=== PATIENT | female | born 1940 | race Caucasian/White ===

== ENCOUNTER 2016-03-29 15:59 | Emergency (ER) | payer MEDICARE, BC ==
[2016-03-29 16:00] VITALS: BMI 19.5
[2016-03-29 16:10] VITALS: TEMP 97.4
[2016-03-29] MEDS ORDERED: DIATRIZOATE MEGLMINE/SODIUM 30 ML BOTTLE PO ONE (16:32)
[2016-03-29 16:45] LABS: AMORPHOUS OCC; LEUKOCYTES/URINE NEG (NEGATIVE); NITRITE/URINE NEG (NEGATIVE); RBC/URINE 0-2 (0-5); URINE OCCULT BLOOD NEG (NEG/TRACE)
[2016-03-29 16:56] LABS: BLOOD UREA NITROGEN 18 MG/DL (7-17); CALC CORRECTED 10.3 MG/DL (8.4-10.2); CALCIUM 9.8 MG/DL (8.4-10.2); CALCULATED OSMOLALITY 274 MOs/Kg (270-290); CHLORIDE 104 mEq/L (98-107); GLUCOSE 122 MG/DL (70-99); SODIUM LEVEL 141 mEq/L (137-146); TOTAL PROTEIN 6.9 G/DL (6.3-8.2)
[2016-03-29 16:58] LABS: AUTOMATED BASOPHIL 0.5 % (0-2); AUTOMATED EOSINOPHIL 1.2 % (0-5); AUTOMATED LYMPH 11.7 % (17-44); AUTOMATED MONOCYTE 7.8 % (3-10); AUTOMATED NEUTROPHIL 78.8 % (45-76); MPV 9.6 fL (7.4-10.4)
[2016-03-29] MEDS ORDERED: Pharmacy Review for Metformin - IV Contrast Given SCH ×3 (17:00)
--- NOTE | 2016-03-29 17:03 | EDPRACDOC ---
- General Information Information Source: Patient, [employer]ing [employer] Operator Mode Of Arrival: Ambulance - History of Present Illness Onset: noon Pain Location: Reports: RLQ Pain Context: Reports: Spontaneous Pain Severity: Severe Pain Quality: Reports: Stabbing Pain Radiation: Reports: No Radiation Oral Intake: Normal Urinary Output: Normal <MichiAnaid rodrigues Pratik - Last Filed: 03/29/16 17:01> <Vandana Bishop - Last Filed: 03/29/16 20:09> <Meagan Patel - Last Filed: 03/29/16 20:35> - General Information Chief Complaint: Abdominal Pain Stated Complaint: RT SIDE PAIN Time Seen by Provider: 03/29/16 16:23 Home Medications: Home Medications Lisinopril [Prinivil] 10 mg PO DAILY 03/03/14 Amiodarone [Cordarone, Pacerone] 200 mg PO BID #60 tablet 08/05/14 Calcium Carbonate/Vitamin D3 [Calcium 600-Vit D3 400 Tablet] 1 each PO BID 08/14 PEG-Electrolytes (Miralax) [Miralax] 17 gm PO Q48H PRN 08/14/14 Lorazepam [Ativan] 1 mg PO Q4H PRN #30 tablet 08/17/14 Folic Acid 1 mg PO BID 12/07/14 Hydrochlorothiazide 25 mg PO Q48H 12/07/14 Ondansetron HCl [Zofran] 4 mg PO Q6H PRN 12/07/14 Oxycodone HCl [Roxicodone] 5 mg PO Q4H PRN 12/08/14 Vitamins,Minerals,Iron [Hemocyte Plus] 1 tab PO DAILY 01/01/15 Apixaban [Eliquis] 2.5 mg PO BID 10/02/15 Potassium Chloride [Klor-Con M10] 10 meq PO DAILY 10/02/15 Allergies/Adverse Reactions: Allergies Allergy/AdvReac Type Severity Reaction Status Date / Time No Known Drug Allergies Allergy Unknown Verified 03/29/16 16:07 - History of Present Illness HPI: PT PRESENTS TODAY FROM [facility] FOR RLQ ABD PAIN THAT BEGAN A FEW HOURS AGO. PT POOR HISTORIAN, BUT STATES THAT THE PAIN CAME ON SUDDENLY AND FELT LIKE SOMEONE STABBING HER. PT STATES THAT WHEN EMS PICKED HER UP, THE PAIN RESIDED. PT DENIES SYMPTOMS AT THIS TIME. DENIES ARNDT, FEVER, CP, SHOB, N/ V/D, DYSURIA. (Anaid Borden) ED Past Medical History - History Reviewed Yes Nurses notes reviewed and agree except as marked - Patient Medical History Neurological History: Reports: Cerebrovascular Accident (x2, bilat weakness 2013 AND 2014), Dementia (ADVANCED). Denies: Migraine Cardiac History: Reports: Atrial Fibrillation, Hypertension, Hypercholesterolemia Respiratory History: Denies: Cough, Chronic Bronchitis, Pulmonary Embolism GI/ History: Denies: Renal Failure, Kidney (Renal Surgery), Kidney Stones, Gastroesophageal Reflux, Ulcer, IBD, Diverticulosis, Pancreatitis Musculoskeletal History: Reports: Arthritis Psychological History: Reports: Anxiety. Denies: Depression, Substance Use Disorder Systemic History: Reports: Cancer (skin cancer, removed.), Anemia (YEARS AGO) Surgical History: Reports: Tonsillectomy/Adnoidectomy ( CHILD), Other (D&C, cataract extractions) - Family Medical History Reports: Cancer (Mother had multiple skin cancers, Dad- colon cancer, Brother liver cancer). Denies: Hypertension, Diabetes, Stroke, Cardiac Disorders - Social Medical History Smoking Status: Never smoker Social History: Denies: Benzodiazipine Use, Substance Use Disorder <Anaid Borden - Last Filed: 03/29/16 17:01> EDM Review of Systems - Review of Systems ROS Negative Except as Marked: Yes All systems reviewed and were negative except as marked ROS Unobtainable: Yes Hx Limited due to age/level of understanding of patient Constitutional: No Symptoms Reported Respiratory: No Symptoms Reported Cardiovascular: No Symptoms Reported Gastrointestinal: Pain Genitourinary: No Symptoms Reported Neurological: No Symptoms Reported Musculoskeletal: No Symptoms Reported Integumentary: No Symptoms Reported <Anaid Borden - Last Filed: 03/29/16 17:01> - Physical Exam Constitutional: Alert (Awake), No apparent distress Oriented to: Time, Person, Place - HEENT Head: Normal Eye Exam: Normal - Respiratory/Cardiovascular Respiratory: Normal - CTA Cardiovascular: Normal - GI Auscultation: Normal Palpation: Normal Tenderness: Non tender - Musculoskeletal Back: Normal Extremities: Normal - Integumentary Skin: Normal Lymphatics: Normal - Neurologic Cerebellar: Unable to Test Mood Description: Normal Thought: Coherent Perception: Normal <Anaid Borden - Last Filed: 03/29/16 17:01> - Results 03/29/16 16:35 03/29/16 16:35 <Anaid Borden - Last Filed: 03/29/16 17:01> - Results 03/29/16 16:35 03/29/16 16:35 - Diagnostic Imaging Abdomen Image interpreted by: Radiologist <Vandana Bishop - Last Filed: 03/29/16 20:09> - Re-evaluation Re-evaluation 3 Re-evaluation Time: 20:34 - Results 03/29/16 16:35 03/29/16 16:35 <Meagan Patel - Last Filed: 03/29/16 20:35> - Re-evaluation Re-evaluation 3 I RECOMMENDED AN ENEMA FOR PATIENT TO RELIEVE FECAL BALL, PATIENT PRESENT WITH ABDOMINAL PAIN WHICH IS CURRENTLY RESOLVED. PATIENT IN NO WAY ONCE THE ENEMA SAYS SHE DOES NOT NEEDED SHE HAS WAS RETURNED BACK TO HER PLACE OF LIVING AT [facility]. PATIENT IS ALERT SHE IS ORIENTED SHE KNOWS WHERE SHE IS 4 MONTHS OUT IS TO WHETHER [facility] SHE APPEARS CAPABLE MAKING RATIONAL DECISION AN INFORMED DECISION THEREFORE WE WILL NOT DO AN ENEMA AGAINST HER WISHES. (Meagan Patel) - Results WBC 4.4 xk/uL (3.8-10.8) 03/29/16 16:35 RBC 4.23 xM/uL (4.20-5.40) 03/29/16 16:35 Hgb 13.2 g/dL (12.0-16.0) 03/29/16 16:35 Hct 41.4 % (36-47) 03/29/16 16:35 MCV 98 fL (81-99) 03/29/16 16:35 MCH 31.3 pg (27-32) 03/29/16 16:35 MCHC 32.0 g/dl (33-36) L 03/29/16 16:35 RDW 15.5 % (11.5-14.5) H 03/29/16 16:35 Plt Count 156 xk/uL (130-400) 03/29/16 16:35 MPV 9.6 fL (7.4-10.4) 03/29/16 16:35 Neut % (Auto) 78.8 % (45-76) H 03/29/16 16:35 Lymph % (Auto) 11.7 % (17-44) L 03/29/16 16:35 [place] % (Auto) 7.8 % (3-10) 03/29/16 16:35 Eos % (Auto) 1.2 % (0-5) 03/29/16 16:35 Baso % (Auto) 0.5 % (0-2) 03/29/16 16:35 Absolute Neuts (auto) 3.43 xk/uL (1.7-8.2) 03/29/16 16:35 Absolute Lymphs (auto) 0.48 xk/uL (0.65-4.75) L 03/29/16 16:35 Sodium 141 mEq/L (137-146) 03/29/16 16:35 Potassium 4.4 mEq/L (3.5-5.1) 03/29/16 16:35 Chloride 104 mEq/L (98-107) 03/29/16 16:35 Carbon Dioxide 30 mMOL/L (22-33) 03/29/16 16:35 Anion Gap 11 mEq/L (8-16) 03/29/16 16:35 BUN 18 MG/DL (7-17) H 03/29/16 16:35 Creatinine 0.70 MG/DL (0.52-1.04) 03/29/16 16:35 Estimated GFR (MDRD) > 60 mL/min (>=60) 03/29/16 16:35 Glucose 122 MG/DL (70-99) H 03/29/16 16:35 Calculated Osmolality 274 MOs/Kg (270-290) 03/29/16 16:35 Calcium 9.8 MG/DL (8.4-10.2) 03/29/16 16:35 Corrected Calcium 10.3 MG/DL (8.4-10.2) H 03/29/16 16:35 Total Bilirubin 0.6 MG/DL (0.2-1.3) 03/29/16 16:35 AST 31 IU/L (14-36) 03/29/16 16:35 ALT 36 IU/L (9-52) 03/29/16 16:35 Alkaline Phosphatase 269 IU/L (55-165) H 03/29/16 16:35 Total Protein 6.9 G/DL (6.3-8.2) 03/29/16 16:35 Albumin 3.5 G/DL (3.5-5.0) 03/29/16 16:35 Urine Color Yellow 03/29/16 16:25 Urine Clarity Sl cldy 03/29/16 16:25 Urine pH 7.0 (5.0-8.0) 03/29/16 16:25 Ur Specific [place] 1.005 (1.003-1.035) 03/29/16 16:25 Urine Protein Neg (NEG/TRACE) 03/29/16 16:25 Urine Glucose (UA) Neg (NEGATIVE) 03/29/16 16:25 Urine Ketones Neg (NEGATIVE) 03/29/16 16:25 Urine Occult Blood Neg (NEG/TRACE) 03/29/16 16:25 Urine Nitrite Neg (NEGATIVE) 03/29/16 16:25 Urine Bilirubin Neg (NEGATIVE) 03/29/16 16:25 Urine Urobilinogen <2.0 MG/DL (0-1) 03/29/16 16:25 Ur Leukocyte Esterase Neg (NEGATIVE) 03/29/16 16:25 Urine RBC 0-2 (0-5) 03/29/16 16:25 Urine WBC 2-5 (0-5) 03/29/16 16:25 Amorphous Sediment Occ 03/29/16 16:25 Hyaline Casts 5-10 (0-2) H 03/29/16 16:25 Urine Mucus Occ (NEG/OCC) 03/29/16 16:25 Lab Results 03/29/16 03/29/16 03/29/16 16:35 16:35 16:25 WBC 4.4 RBC 4.23 Hgb 13.2 Hct 41.4 MCV 98 MCH 31.3 MCHC 32.0 L RDW 15.5 H Plt Count 156 MPV 9.6 Neut % (Auto) 78.8 H Lymph % (Auto) 11.7 L [place] % (Auto) 7.8 Eos % (Auto) 1.2 Baso % (Auto) 0.5 Absolute Neuts (auto) 3.43 Absolute Lymphs (auto) 0.48 L Sodium 141 Potassium 4.4 Chloride 104 Carbon Dioxide 30 Anion Gap 11 BUN 18 H Creatinine 0.70 Estimated GFR (MDRD) > 60 Glucose 122 H Calculated Osmolality 274 Calcium 9.8 Corrected Calcium 10.3 H Total Bilirubin 0.6 AST 31 ALT 36 Alkaline Phosphatase 269 H Total Protein 6.9 Albumin 3.5 Urine Color Yellow Urine Clarity Sl cldy Urine pH 7.0 Ur Specific [place] 1.005 Urine Protein Neg Urine Glucose (UA) Neg Urine Ketones Neg Urine Occult Blood Neg Urine Nitrite Neg Urine Bilirubin Neg Urine Urobilinogen <2.0 Ur Leukocyte Esterase Neg Urine RBC 0-2 Urine WBC 2-5 Amorphous Sediment Occ Hyaline Casts 5-10 H Urine Mucus Occ (Anaid Borden) (Vandana [employer]) (Meagan Patel) - Diagnostic Imaging Abdomen 03/29/16 20:09 IMPRESSION: Mild interstitial pulmonary edema, small right pleural effusion and bibasilar hypoventilatory changes of the lungs. Focal consolidation versus pulmonary mass in the left lung base measuring approximately 3 cm. Periportal hepatic edema, nonspecific finding with likely inflammatory etiology. Nonobstructive nephrolithiasis bilaterally. Bilateral renal masses, the larger of which are consistent with cysts. Moderate amount of stool throughout the colon with evidence of rectal impaction. Comminuted fracture of unknown acuity of the right femur greater trochanter, with somewhat sclerotic appearance of the adjacent bony cortex. Pathologic fracture cannot be excluded. T10, T12, L2 and L4 compression fractures, with mottled appearance of the bony matrix. Pathologic fractures cannot be excluded. Does the patient have a known malignancy capable of producing sclerotic lesions? (Vandana Bishop) <Anaid Borden - Last Filed: 03/29/16 17:01> - Departure Education/Counseling Given To: Patient Education/Counseling Given Regarding: Diagnosis, Treatment <Vandana Bishop - Last Filed: 03/29/16 20:09> - Departure Yes I personally saw and evaluated the patient. Disposition: Assisted Living Facility <Meagan Patel - Last Filed: 03/29/16 20:35> - Departure Condition: Stable Final Diagnosis: Compression fracture of body of thoracic vertebra, Lung mass Constipation Qualifiers: Constipation type: unspecified constipation type Qualified Code(s): K59.00 - Constipation, unspecified Compression fracture of lumbar vertebra Qualifiers: Encounter type: initial encounter Fracture type: closed Qualified Code(s): S32.000A - Wedge compression fracture of unspecified lumbar vertebra, initial encounter for closed fracture Fracture of greater trochanter of right femur Qualifiers: Encounter type: initial encounter Fracture type: closed Qualified Code(s): S72.111A - Displaced fracture of greater trochanter of right femur, initial encounter for closed fracture Instructions: Acute Abdominal Pain (ED) Referrals: Cara Randolph DO [Primary Care Provider] - One Week Additional Instructions: YOUR RADIOGRAPHIC STUDIES (CT Scan)SHOWED AN ABNORMALITY (LUNG MASS AND POSSIBLE PATHOLOGICAL FRACTURES). IT IS TOO EARLY OR TOO SMALL TO DETERMINE EXACTLY WHAT IT IS. YOU WILL NEED TO FOLLOW-UP WITH YOUR PRIMARY CARE DOCTOR IN THE NEXT COUPLE OF WEEKS TO HAVE THIS CHEEKED (TO MAKE SURE IT IS NOT EARLY CANCER).
--- NOTE | 2016-03-29 20:00 | DIRPT ---
CLINICAL DATA: Right lower quadrant abdominal pain. EXAM: CT ABDOMEN AND PELVIS WITH CONTRAST TECHNIQUE: Multidetector CT imaging of the abdomen and pelvis was performed using the standard protocol following bolus administration of intravenous contrast. CONTRAST: 80 cc Isovue 370 intravenously. COMPARISON: None. FINDINGS: Lower chest: There is mild interstitial pulmonary edema. Bibasilar hypoventilatory changes and small right pleural effusion are seen. There is a more focal area of consolidation in the right lung base versus a pulmonary mass measuring approximately 3 cm. Hepatobiliary: No hepatic masses are seen. There is periportal edema. Pancreas: No mass, inflammatory changes, or other significant abnormality. The pancreas is atrophic. Spleen: Within normal limits in size and appearance. Adrenals/Urinary Tract: No evidence of hydronephrosis. There are bilateral few mm nonobstructive renal calculi. There are numerous bilateral hypoattenuated circumscribed renal masses, the larger of which satisfy the criteria for simple cysts, and the few mm ones are too small to be actually characterize by CT. Stomach/Bowel: No evidence of obstruction, inflammatory process, or abnormal fluid collections. There is large amount of formed stool throughout the colon with enlargement of the rectum of up to 10 cm, suggestive of rectal impaction. Vascular/Lymphatic: No pathologically enlarged lymph nodes. No evidence of abdominal aortic aneurysm. The aorta is torturous and demonstrates mild calcified atherosclerotic disease. Reproductive: No mass or other significant abnormality. Other: None. Musculoskeletal: There is a comminuted fracture of the greater trochanter of the right femur with unknown acuity. Additionally, there are compression fractures of T10, T12, L2, and L4 vertebral body with mottled appearance of the bony cortex of the fractured vertebrae. The most severe compression deformity is seen at L2, with there is approximate 90 percent height loss centrally. IMPRESSION: Mild interstitial pulmonary edema, small right pleural effusion and bibasilar hypoventilatory changes of the lungs. Focal consolidation versus pulmonary mass in the left lung base measuring approximately 3 cm. Periportal hepatic edema, nonspecific finding with likely inflammatory etiology. Nonobstructive nephrolithiasis bilaterally. Bilateral renal masses, the larger of which are consistent with cysts. Moderate amount of stool throughout the colon with evidence of rectal impaction. Comminuted fracture of unknown acuity of the right femur greater trochanter, with somewhat sclerotic appearance of the adjacent bony cortex. Pathologic fracture cannot be excluded. T10, T12, L2 and L4 compression fractures, with mottled appearance of the bony matrix. Pathologic fractures cannot be excluded. Does the patient have a known malignancy capable of producing sclerotic lesions? Electronically Signed By: Heydi Gregory M.D. On: 03/29/2016 19:58
[2016-03-29] MEDS ORDERED: BUBBLE GUM ENEMA 480 ML ENEMA PR ONE (20:30)
[2016-03-29 20:56] VITALS: BP 165/74; PULSE 69
== END 2016-03-29 20:52 ==
LOC: ED 15:59
DX: K59.00 Constipation, unspecified (principal); S32.000A Wedge compression fracture of unspecified lumbar vertebra, initial encounter for closed fracture; S72.111A Displaced fracture of greater trochanter of right femur, initial encounter for closed fracture; S22.079A Unspecified fracture of T9-T10 vertebra, initial encounter for closed fracture; S22.089A Unspecified fracture of T11-T12 vertebra, initial encounter for closed fracture; X58.XXXA Exposure to other specified factors, initial encounter; R91.8 Other nonspecific abnormal finding of lung field
CPT/HCPCS: 36415; 74177; 80053; 81001; 85025; 99284; A9698; J3490